=== PATIENT | male | born 1995 | race Caucasian/White ===

== ENCOUNTER 2021-11-11 19:57 | Emergency (ER) | payer SELFPAY ==
[2021-11-11] MEDS ORDERED: FLONASE 0.05% N16 GM (20:35)
[2021-11-11] MEDS ORDERED: MEDROL DOSEPAK 24 MG PO (20:35)
[2021-11-11] MEDS ORDERED: DELSYM30 MG/5 ML PO (20:35)
== END 2021-11-11 20:41 | disposition home or self-care (01) ==
LOC: ER1 19:57
DX: R05.9 Cough, unspecified (principal); Z20.822 Contact with and (suspected) exposure to COVID-19
CPT/HCPCS: 99283; U0003